=== PATIENT | female | born 1980 | race African-American/Black ===

== ENCOUNTER 2016-11-17 12:00 | Emergency (ER) | payer OTHER ==
[2016-11-17 14:30] VITALS: BP 113/77
[2016-11-17] MEDS ORDERED: Lidocaine 2% PF * 5 ML VIAL INJ ONE (14:35)
[2016-11-17] MEDS ORDERED: Tetan/Diph/Pertus SYR(Tdap)* 0.5 ML SYR(BOOSTRIX) use SYR IM ONE (14:35)
--- NOTE | 2016-11-17 15:57 | UC ---
Skin Complaint HPI - HPI Summary HPI Summary: 11/06/16 BEGAN DEVELOPING ABSCESS ON RIGHT BUTTOCKS. NO FEVER. NO DIFFICULTY WITH BOWEL MOVEMENT. SIMILAR CONCERN 14 YEARS AGO. NO KNOWN HISTORY OF MRSA. TETANUS STATUS UNKNOWN - History of Current Complaint Chief Complaint: UCSkin Time Seen by Provider: 11/17/16 14:14 Stated Complaint: SKIN COMPLAINT Hx Obtained From: Patient Hx Last Menstrual Period: 11/14/16 Onset/Duration: Gradual Onset, Lasting Weeks, Still Present Skin Exposure Onset/Duration: Weeks Ago Onset Severity: Mild Current Severity: Moderate Location: Discrete - RIGHT BUTTOCKS Character: Swelling, Redness, Raised, Painful Aggravating: Touch Alleviating: Nothing Associated Signs & Symptoms: Positive: Tenderness, Red Streaks. Negative: Nausea, Vomiting, Fever, Chills, Cough, Wheezing, Chest Pain, Hoarseness, Throat Tightening Related History: Trauma, Possible Reaction to: Environmental Exposure - Allergy/Home Medications Allergies/Adverse Reactions: Allergies Allergy/AdvReac Type Severity Reaction Status Date / Time Aspirin [ASA] Allergy Intermediate Rash Verified 11/17/16 12:06 Review of Systems Constitutional: Negative Skin: Other - ABSCESS RIGHT BUTTOCKS Eyes: Negative ENT: Negative Respiratory: Negative Cardiovascular: Negative Gastrointestinal: Negative Genitourinary: Negative Motor: Negative Neurovascular: Negative Musculoskeletal: Negative Neurological: Negative Psychological: Negative All Other Systems Reviewed And Are Negative: Yes PMH/Surg Hx/FS Hx/Imm Hx Previously Healthy: Yes - Surgical History Surgical History: Yes Surgery Procedure, Year, and Place: c sections - Family History Known Family History: Negative: Respiratory Disease, Blood Disorder - Social History Occupation: Employed Full-time Lives: With Family Alcohol Use: Occasionally Substance Use Type: None Smoking Status (MU): Current Every Day Smoker Household Exposure Type: Cigarettes Physical Exam Triage Information Reviewed: Yes Appearance: Well-Appearing, Well-Nourished, Pain Distress Vital Signs: Initial Vital Signs Temp 98.5 F 11/17/16 12:03 Pulse 83 11/17/16 12:03 Resp 16 11/17/16 12:03 BP 113/73 11/17/16 12:03 Pulse Ox 100 11/17/16 12:03 Eye Exam: Normal ENT Exam: Normal ENT: Positive: Normal ENT inspection, Hearing grossly normal, TMs normal Dental Exam: Normal Neck exam: Normal Respiratory Exam: Normal Respiratory: Positive: Chest non-tender, Lungs clear, Normal breath sounds, No respiratory distress, No accessory muscle use Cardiovascular Exam: Normal Cardiovascular: Positive: RRR, No Murmur, Pulses Normal Abdominal Exam: Normal Musculoskeletal Exam: Normal Musculoskeletal: Positive: Strength Intact, ROM Intact Neurological Exam: Normal Psychological Exam: Normal Skin: Positive: Other - 3CM X 3CM FLUCTUANT ABSCESS RIGHT BUTTOCKS - Additional Comments 3CM X 3CM FLUCTUANT ABSCESS RIGHT BUTTOCKS; INCISED AND DRAINED USING #11 BLADE , 2% LIDOCAINE, FIELD BLOCK AND 1/4" PACKING. Course/Dx - Differential Diagnoses - Skin Complaint Differential Diagnoses: Abscess, Cellulitis, Other - PILONIDAL CYST; - Diagnoses Provider Diagnoses: ABSCESS INCISION AND DRAINAGE, RIGHT BUTTOCKS Discharge - Discharge Plan Condition: Stable Disposition: HOME Prescriptions: Sulfamethox/Trimethoprim DS* [Bactrim DS 800/160 TAB*] 1 tab PO BID #20 tab Patient Education Materials: Abscess (ED) Referrals: William Thompson MD [Primary Care Provider] - Additional Instructions: PLEASE RETURN IN THREE DAYS TO HAVE ABSCESS EVALUATED Images Front/Back of Body, Lg (Riley): 1 - 3CM X 3CM FLUCTUANT ABSCESS RIGHT BUTTOCKS
== END 2016-11-17 15:56 | disposition home or self-care (01) ==
LOC: UCEAST 12:00
DX: L05.01 Pilonidal cyst with abscess (principal); L03.317 Cellulitis of buttock; Z72.0 Tobacco use
CPT/HCPCS: 10060; 46050; 87070; 87205; 87640; 87641; 90471; 90715; 99212; G0463

== ENCOUNTER 2017-01-15 08:54 | Emergency (ER) | payer OTHER ==
[2017-01-15 09:47] VITALS: BP 122/57
--- NOTE | 2017-01-15 10:07 | UC ---
Matt Sims Angela, scribed for Oanh Hair MD on 01/15/17 at 1002 . General HPI - HPI Summary HPI Summary: This pt is a 36 y/o female presenting to [facility] c/o umbilical pain and swelling for 1 week now. Pt reports she has an umbilical mass that has increased in size over the last year. Pt states it seems to get bigger and smaller. She took her navel ring out due to the increased size. Pt states sometimes had discomfort with palpation or if "bumps it." She denies any trauma to the area. Pt denies nausea, vomiting, diarrhea, fever, chills. No changes in bowel/bladder. She denies any prior history of keloids. No analgesia taken. Has not ever had it evaluated. No abd surgery, c section x 3 Pt has an allergy to aspirin, reaction is break out, facial swelling. She is a current smoker (1 pack lasts 3 days), drinks occasional alcohol but denies drugs. Pt has had 3 c-sections. Patients medication reviewed this visit. - History of Current Complaint Chief Complaint: UCGeneralIllness Stated Complaint: SOFT TISSUE Time Seen by Provider: 01/15/17 09:39 Hx Obtained From: Patient Hx Last Menstrual Period: 01/15/17 Onset/Duration: Lasting Days Timing: Constant Onset Severity: Mild Current Severity: Mild Pain Intensity: 2 - with palpation only Associated Signs & Symptoms: Positive: Other - umbilical mass. Negative: Abdominal Pain, Diarrhea, Fever, Nausea, Trauma, Vomiting - Allergy/Home Medications Allergies/Adverse Reactions: Allergies Allergy/AdvReac Type Severity Reaction Status Date / Time Aspirin [ASA] Allergy Intermediate Rash Verified 01/15/17 09:43 PMH/Surg Hx/FS Hx/Imm Hx Previously Healthy: Yes Other Endocrine History: DENIES: diabetes Other Cardiovascular History: DENIES: HTN - Surgical History Surgical History: Yes Surgery Procedure, Year, and Place: 3 c-sections, L arm surgery - Family History Known Family History: Positive: Hypertension - mom, Other - mother: pacemaker Negative: Respiratory Disease, Blood Disorder - Social History 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[employer], 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 Lives: With Family Alcohol Use: Occasionally Substance Use Type: None Smoking Status (MU): Current Every Day Smoker Amount Used/How Often: 1/3 PPD Household Exposure Type: Cigarettes Review of Systems Constitutional: Negative Skin: Other - umbilical mass Eyes: Negative ENT: Negative Respiratory: Negative Cardiovascular: Negative Gastrointestinal: Negative Genitourinary: Negative Motor: Negative Neurovascular: Negative Musculoskeletal: Negative Neurological: Negative Psychological: Negative All Other Systems Reviewed And Are Negative: Yes Physical Exam Triage Information Reviewed: Yes Appearance: Well-Appearing, No Pain Distress, Well-Nourished Vital Signs: Initial Vital Signs Temp 97 F 01/15/17 09:43 Pulse 70 01/15/17 09:43 Resp 16 01/15/17 09:43 BP 122/57 01/15/17 09:43 Pulse Ox 100 01/15/17 09:43 Vital Signs Reviewed: Yes Eye Exam: Normal ENT: Positive: Hearing grossly normal, TMs normal Dental Exam: Normal Neck exam: Normal Neck: Positive: Supple, Nontender, No Lymphadenopathy Respiratory Exam: Normal Respiratory: Positive: Chest non-tender, Lungs clear, Normal breath sounds Cardiovascular Exam: Normal Cardiovascular: Positive: RRR, No Murmur, Pulses Normal Abdomen Description: Positive: No Organomegaly, Soft, Other: - Pt with small umbilical hernia - soft easily reduced with pt supine and knees flexed. No warmth, no erythema abd soft + BS No guarding Bowel Sounds: Positive: Present Musculoskeletal Exam: Normal Neurological Exam: Normal Psychological Exam: Normal Skin: Positive: Other - see abd section Course/Dx - Course Course Of Treatment: PT presents with recurring swelling in umbilicus - pt with soft, easily reduced umbilical hernia. counseled pt regarding hernia, techniques to reduce, cause of concern. Pt given referral to general surgery to discuss treatment options. pt comfortable and in agreement with plan - Differential Dx - Multi-Symptom Provider Diagnoses: umbilical hernia Discharge - Discharge Plan Condition: Stable Disposition: HOME Patient Education Materials: Umbilical Hernia (ED) Referrals: William Thompson MD [Primary Care Provider] - Marshall Galo MD [Medical Doctor] - Additional Instructions: - Stay well hydrated - drink plenty of non-alcoholic, non-caffinated beverages - contact the surgeon referral to discuss treatment options for your hernia - if your buldge comes out - lay flat on your back and apply gentle pressure over the buldge. If you have pain, reddness, nausea or any other concerns - contact your doctor or go to the emergency department - Okay to take Tylenol every6 hours for pain The documentation as recorded by the scribe, Gutierrez,Yary accurately reflects the service I personally performed and the decisions made by me, Oanh Hair MD.
== END 2017-01-15 10:24 | disposition home or self-care (01) ==
LOC: UCEAST 08:54
DX: K42.9 Umbilical hernia without obstruction or gangrene (principal); Z88.6 Allergy status to analgesic agent
CPT/HCPCS: 99211; G0463

== ENCOUNTER 2017-01-29 06:09 | Day surgery (SDC) | payer OTHER ==
[~2017-01-29 06:09] MED LIST: Acetaminophen TAB* 325 MG PO ONE; Buffered Lidocaine 0.9% SYRIN* 5 ML/SYR SYRINGE INTRADERM ONE; Dexamethasone IV* 4 MG/ML 1 ML (4 MG) IV SLOW PU ONE; Levalbuterol 0.63MG/3ML NEB* UNIT OF USE INH ONE; Metoclopramide IV* 5 MG/ML 2 ML VIAL IV SLOW PU ONE
[2017-01-29] MEDS ORDERED: Acetaminophen TAB* 325 MG ONE (06:21)
[2017-01-29] MEDS ORDERED: Dexamethasone IV* 4 MG/ML 1 ML (4 MG) ONE (06:21)
[2017-01-29] MEDS ORDERED: Metoclopramide IV* 5 MG/ML 2 ML VIAL ONE (06:21)
[2017-01-29] MEDS ORDERED: Levalbuterol 1.25MG/0.5ML NEB ONE (06:21)
[2017-01-29] MEDS ORDERED: ceFAZolin 2 GM PREMIX (*) 50 ML IVPB ONE (06:22)
[2017-01-29] MEDS ORDERED: Buffered Lidocaine 0.9% SYRIN* 5 ML/SYR SYRINGE ONE (06:22)
[2017-01-29] MEDS ORDERED: fentaNYL* 50 MCG/ML 2 ML VIAL (100 MCG VIAL) ONE ×3 (06:59→09:55)
[2017-01-29] MEDS ORDERED: Midazolam* 1 MG/ML 2 ML VIAL (2 MG) ONE (07:00)
[2017-01-29] MEDS ORDERED: Lidocaine 1% INJ* 10 MG/ML 30 ML SDV ONE (07:13)
[2017-01-29] MEDS ORDERED: Bupivacaine 0.5% SDV PF* 30 ML VIAL ONE (07:13)
[2017-01-29] MEDS ORDERED: oxyCODONE TAB* 5 MG TAB PO PRN (08:03)
[2017-01-29] MEDS ORDERED: Scopolamine 1.5 mg* PATCH TRANSDERM PRN (08:03)
[2017-01-29] MEDS ORDERED: HYDROmorphone INJ* 1 MG/ML CARPUJECT SYRINGE IV PRN (08:03)
[2017-01-29] MEDS ORDERED: Levalbuterol 0.63MG/3ML NEB* UNIT OF USE INH PRN (08:03)
[2017-01-29] MEDS ORDERED: Ondansetron INJ* 2 MG/ML VIAL IV PRN (08:03)
[2017-01-29] MEDS ORDERED: EPHEDrine (Pressors)* 50 MG/ML VIAL ONE (08:26)
[2017-01-29] MEDS ORDERED: Sterile Water for Inj* 10 ML ONE (08:26)
[2017-01-29] MEDS ORDERED: Lidocaine 2% PF * 5 ML VIAL ONE (08:26)
[2017-01-29] MEDS ORDERED: Ondansetron INJ* 2 MG/ML VIAL ONE (08:26)
[2017-01-29] MEDS ORDERED: Propofol* 10 MG/ML 20 ML BTL IV PUSH ONE (08:26)
[2017-01-29] MEDS ORDERED: Phenylephrine IV* 40 MCG/ML 10 ML SYRINGE ONE (08:27)
[2017-01-29] MEDS ORDERED: Ketorolac INJ* 30 MG/ML 1 ML VIAL ONE (09:11)
--- NOTE | 2017-01-29 09:20 | SURGPN ---
Brief Operative Note - Surgery Procedures: Procedures OPERATIVE REPORT PRE-OP: Umbilical hernia POST-OP: Same PROCEDURE: Open repair with mesh of umbilical hernia SURGEON: MD Clover ANESTHESIA: General with local ASST:NESHA Camara=S IVF: min EBL: min SPECIMEN: none DRAIN: none WOUND CLASS: One COMPLICATIONS: none TO PACU
[2017-01-29] MEDS: fentaNYL* 50 MCG/ML 2 ML VIAL (100 MCG VIAL) IV PRN ×2 (09:57→10:20)
[2017-01-29] MEDS ORDERED: oxyCODONE TAB* 5 MG TAB ONE (10:27)
[2017-01-29 11:10] VITALS: BP 120/80
--- NOTE | 2017-01-30 12:07 | OP ---
DATE OF OPERATION: 01/29/17 - [facility] DATE OF : 78 SURGEON: Marshall Galo MD ANESTHESIOLOGIST: Oanh Castro MD ANESTHESIA: General with local. PRE-OP DIAGNOSIS: Umbilical hernia. POST-OP DIAGNOSIS: Umbilical hernia. OPERATIVE PROCEDURE: Open repair with 4.3-cm Bard Ventralex mesh placed preperitoneally. ESTIMATED BLOOD LOSS: Minimal. SPECIMENS: None. WOUND CLASSIFICATION: 1. DRAINS: None COMPLICATIONS: None. DESCRIPTION OF PROCEDURE: Written and informed consent was obtained and the abdomen was marked with indelible ink and preoperative antibiotics were administered. The patient was taken to the operating room and placed in the supine position. Sequential compression devices and a warming blanket were applied. Anesthesia was administered and the abdomen was prepped and draped in the usual sterile fashion. Time-out verification was completed. Initially, 0.25% Marcaine mixed with 1% lidocaine was infiltrated extensively around the umbilicus and a semicircular incision was made just below the umbilical fold. This was carried down to the fascia below the umbilicus and subsequently the umbilical stalk was encircled with a one-quarter inch Mann[place] drain. The umbilical skin was excised off the underlying hernia, which appeared to be preperitoneal fat, which was from the skin and reduced through a fascial defect which was about 1.5 cm in size. I did not enter the peritoneal cavity and the fascial edges appeared to be intact and healthy. I then developed the preperitoneal space with sharp and blunt dissection and with her age, activity level, as well as her higher BMI, I decided that a mesh would be indicated. Next, a 4.3-cm circular Bard mesh was then placed with the straps in the preperitoneal position. This was sutured both superiorly and inferiorly to the fascia with 2 separate horizontal mattress 0 Polysorb suture. The hoh fascia was then closed over the mesh with really no tension. Hemostasis was assured. The wound was closed in layers of 3-0 and 4-0 Polysorb suture. Steri- Strips and sterile dressings were applied. The patient tolerated the procedure well and was taken to the recovery room in stable condition. [id number]/[facility] #: [id number] MTDIsaak
[2017-02-01] MEDS ORDERED: Scopolomine PATCH Remove* 1 NOTE MISC PATCH OFF ONE (08:04)
== END 2017-01-29 11:25 | disposition home or self-care (01) ==
LOC: OR 06:09
PROVIDERS: ATTEND Surgery
DX: K42.9 Umbilical hernia without obstruction or gangrene (principal); F17.210 Nicotine dependence, cigarettes, uncomplicated; Z88.6 Allergy status to analgesic agent
CPT/HCPCS: 81025; A9270-GY; C1781; J0690; J1100; J1885; J2001; J2250; J2405; J2704; J2765; J3010

== ENCOUNTER 2017-03-12 09:12 | Emergency (ER) | payer OTHER ==
[2017-03-12 09:20] VITALS: BP 115/57
--- NOTE | 2017-03-12 10:09 | UC ---
Eye Complaint HPI - HPI Summary HPI Summary: Awoke with left eye red, crusty, draining, and irritated - History of Current Complaint Hx Obtained From: Patient Hx Last Menstrual Period: 01/15/17 ?: No Onset/Duration: Sudden Onset, Lasting Days - 1 Timing: Constant Severity Initially: Mild Severity Currently: Mild Location of Injury: Conjunctiva Aggravating Factor(s): Nothing Alleviating Factor(s): Nothing Associated Signs And Symptoms: Positive: Drainage (Purulent) <Breanne Khan - Last Filed: 03/12/17 10:13> <Oanh Hair - Last Filed: 03/12/17 14:00> - History of Current Complaint Chief Complaint: UCEye Stated Complaint: EYE COMPLAINT Time Seen by Provider: 03/12/17 10:01 - Allergies/Home Medications Allergies/Adverse Reactions: Allergies Allergy/AdvReac Type Severity Reaction Status Date / Time Aspirin [ASA] Allergy Severe Hives/Diff. Verified 01/29/17 06:30 Breathing/I tching PMH/Surg Hx/FS Hx/Imm Hx Previously Healthy: Yes - Surgical History Surgical History: Yes Surgery Procedure, Year, and Place: C- SECTION- 1994- [facility] [facility] [place] [facility] [place] Family History Known Family History: Positive: Hypertension - mom, Other - mother: pacemaker Negative: Respiratory Disease, Blood Disorder - Social History Occupation: Student Lives: With Family Alcohol Use: None Substance Use Type: None Smoking Status (MU): Current Every Day Smoker Type: Cigarettes Amount Used/How Often: 1/4 PPD FOR SINCE 17 Length of Time of Smoking/Using Tobacco: 19 YRS Have You Smoked in the Last Year: Yes Household Exposure Type: Cigarettes <Breanne Khan - Last Filed: 03/12/17 10:13> Review of Systems Constitutional: Negative Skin: Negative Eyes: Negative, Drainage, Eye Redness ENT: Negative Respiratory: Negative Cardiovascular: Negative Gastrointestinal: Negative Genitourinary: Negative Motor: Negative Neurovascular: Negative Musculoskeletal: Negative Neurological: Negative Psychological: Negative Is Patient Immunocompromised?: No All Other Systems Reviewed And Are Negative: Yes <Breanne Khan - Last Filed: 03/12/17 10:13> Physical Exam Triage Information Reviewed: Yes Appearance: Well-Appearing, No Pain Distress, Well-Nourished Vital Signs: Initial Vital Signs Temp 99.6 F 03/12/17 09:17 Pulse 85 03/12/17 09:17 Resp 18 03/12/17 09:17 BP 115/57 03/12/17 09:17 Pulse Ox 100 03/12/17 09:17 Vital Signs Reviewed: No Eye Exam: Normal Eyes: Positive: Conjunctiva Inflamed, Discharge, Other: - perrla, eomi ENT Exam: Normal ENT: Positive: Normal ENT inspection, Hearing grossly normal, Pharynx normal. Negative: Nasal congestion, Nasal drainage, Trismus, Muffled voice, Hoarse voice , Sinus tenderness Dental Exam: Normal Neck exam: Normal Neck: Positive: Supple, Nontender Respiratory Exam: Normal Respiratory: Positive: Chest non-tender, No respiratory distress, No accessory muscle use Cardiovascular Exam: Normal Cardiovascular: Positive: RRR, Pulses Normal, Brisk Capillary Refill Musculoskeletal Exam: Normal Musculoskeletal: Positive: Strength Intact, ROM Intact, No Edema Neurological Exam: Normal Neurological: Positive: Alert, Muscle Tone Normal Psychological Exam: Normal Skin Exam: Normal <Breanne Khan - Last Filed: 03/12/17 10:13> Vital Signs: Initial Vital Signs Temp 99.6 F 03/12/17 09:17 Pulse 85 03/12/17 09:17 Resp 18 03/12/17 09:17 BP 115/57 03/12/17 09:17 Pulse Ox 100 03/12/17 09:17 <Oanh Hair - Last Filed: 03/12/17 14:00> Eye Complaint Course/Dx - Course Course Of Treatment: polytrim drops, follow with pcp prn - Differential Dx/Diagnosis Provider Diagnoses: OS conjuctivitis <Breanne Khan - Last Filed: 03/12/17 10:13> Discharge <Breanne Khan - Last Filed: 03/12/17 10:13> <Oanh Hair - Last Filed: 03/12/17 14:00> - Discharge Plan Condition: Stable Disposition: HOME Prescriptions: Polymyx/Trimethoprim OPTH* [Polytrim OPHTH*] 1 drop LEFT EYE QID #1 btl Patient Education Materials: How to Use Eye Drops (ED), Conjunctivitis (ED) Referrals: William Thompson MD [Primary Care Provider] - If Needed Attestation Statement User Type: Provider - I was available for consult. This patient was seen by the [facility]. The patient was not presented to, seen by, or examined by me. -Justin <Oanh Hair - Last Filed: 03/12/17 14:00>
== END 2017-03-12 10:15 | disposition home or self-care (01) ==
LOC: UCEAST 09:12
DX: H10.9 Unspecified conjunctivitis (principal); Z88.6 Allergy status to analgesic agent; F17.210 Nicotine dependence, cigarettes, uncomplicated
CPT/HCPCS: 99212; G0463

== ENCOUNTER 2017-03-21 21:06 | Emergency (ER) | payer OTHER ==
[2017-03-21 21:14] VITALS: BP 122/71
--- NOTE | 2017-03-21 21:17 | UC ---
Eye Complaint HPI - HPI Summary HPI Summary: Pt presents with left eye redness and drainage. She tells me that about 3 weeks ago she developed left eye redness, itchiness, and discharge. She was seen at the and rx'd Trimethoprim/polymyxin which she used for 6 days - her symptoms improved, but were not completely gone and she had no more drops lets. She woke up this morning with her symptoms returned - redness, itchiness, and discharge from left eye. Denies fever, chills, pain, recent illness, vision changes, or FB sensation. She does not wear contacts. - History of Current Complaint Chief Complaint: UCEye Stated Complaint: EYE COMPLAINT Hx Obtained From: Patient Hx Last Menstrual Period: 1 WEEK AGO Onset/Duration: Gradual Onset Timing: Constant Severity Initially: Moderate Severity Currently: Moderate Pain Intensity: 8 Pain Scale Used: 0-10 Numeric - Allergies/Home Medications Allergies/Adverse Reactions: Allergies Allergy/AdvReac Type Severity Reaction Status Date / Time Aspirin [ASA] Allergy Severe Hives/Diff. Verified 03/21/17 21:14 Breathing/I tching PMH/Surg Hx/FS Hx/Imm Hx Previously Healthy: Yes - Surgical History Surgical History: Yes Surgery Procedure, Year, and [facility] [place] [facility] [place]. C- SECTION- 2002, 2006[place] [facility] [place]. . [facility]ERNIA REPAIR 01/28/17 - Family History Known Family History: Positive: Hypertension - mom, Other - mother: pacemaker Negative: Respiratory Disease, Blood Disorder - Social History Alcohol Use: None Substance Use Type: None Smoking Status (MU): Current Every Day Smoker Type: Cigarettes Amount Used/How Often: 1/3 PPD Length of Time of Smoking/Using Tobacco: 19 YRS Have You Smoked in the Last Year: Yes Household Exposure Type: Cigarettes Review of Systems Constitutional: Negative Skin: Negative Eyes: Drainage, Eye Redness ENT: Negative Respiratory: Negative Cardiovascular: Negative All Other Systems Reviewed And Are Negative: Yes Physical Exam Triage Information Reviewed: Yes Appearance: Well-Appearing, Well-Nourished Vital Signs: Initial Vital Signs Temp 98.2 F 03/21/17 21:10 Pulse 73 03/21/17 21:10 Resp 16 03/21/17 21:10 BP 122/71 03/21/17 21:10 Vital Signs Reviewed: Yes Eyes: Positive: Conjunctiva Inflamed - Left eye, Discharge - Left eye. Watery and yellow in color. PERRLA. EOMI., Other: - OD/OS/OU: 20/25 ENT: Positive: Hearing grossly normal, Pharynx normal, TMs normal. Negative: Pharyngeal erythema, Nasal congestion, Nasal drainage, TM bulging, TM dull, TM red, Tonsillar swelling, Tonsillar exudate, Sinus tenderness Neck: Positive: Supple, Nontender, No Lymphadenopathy Eye Complaint Course/Dx - Course Course Of Treatment: Failed polymyxin b with trimethoprim - will try Cipro Opth - Differential Dx/Diagnosis Differential Diagnosis/HQI/PQRI: Conjunctivitis Provider Diagnoses: Conjunctivitis left eye Discharge - Discharge Plan Condition: Stable Disposition: HOME Prescriptions: Ciprofloxacin 0.3% OPTH.ALYSSA* [Cipro 0.3% Opth*] 1 drop LEFT EYE TID #1 btl Patient Education Materials: Conjunctivitis (ED) Referrals: William Thompson MD [Primary Care Provider] - Additional Instructions: If you develop a fever, SOB, chest pain, decreased vision, headache, pain in the eye, new or worsening symptoms - please call your PCP or go to the ED.
[2017-03-21] MEDS ORDERED: Ciprofloxacin 0.3% OPTH.SOL* 2.5 ML BTL LEFT EYE ONE (21:22)
[2017-03-21] MEDS ORDERED: Ciprofloxacin 0.3% OPTH.SOL* 2.5 ML BTL ONE (21:23)
== END 2017-03-21 21:39 | disposition home or self-care (01) ==
LOC: UCEAST 21:06
DX: H10.9 Unspecified conjunctivitis (principal); Z72.0 Tobacco use
CPT/HCPCS: 99212; A9270-GY; G0463

== ENCOUNTER 2018-12-30 04:30 | Emergency (ER) | payer MEDICAID, OTHER ==
--- NOTE | 2018-12-30 04:52 | ED ---
Throat Pain/Nasal Congestion - HPI Summary HPI Summary: This patient is a 38 year old female presenting to [facility] with a chief complaint of sore throat since 2 days ago. Pt reports her throat hurts, every time she coughs or turns her head it feels like someone is stabbing her in her right chest, and her R eye has been itching and red. She denies fever. She states it is difficult to move up stairs. She states she has had decreased appetite. She states nobody else at home has been sick. - History of Current Complaint Chief Complaint: EDThroatPain Time Seen by Provider: 12/30/18 04:43 Hx Obtained From: Patient Onset/Duration: Lasting Days - Allergies/Home Medications Allergies/Adverse Reactions: Allergies Allergy/AdvReac Type Severity Reaction Status Date / Time MS Aspirin [ASA] Allergy Severe Hives/Diff. Verified 12/30/18 04:46 Breathing/I tching PMH/Surg Hx/FS Hx/Imm Hx Endocrine/Hematology History: Denies: Hx Diabetes Cardiovascular History: Denies: Hx Hypertension Respiratory History: Denies: Hx Chronic Obstructive Pulmonary Disease (COPD) GI History: Reports: Other GI Disorders - HX OF UMBILICAL HERNIA FOR ABOUT 1 YR Musculoskeletal History: Reports: Other Musculoskeletal History - 1996 LEFT FOREARM LACERATION Sensory History: Reports: Hx Contacts or Glasses - GLASSES Denies: Hx Hearing Aid Opthamlomology History: Reports: Hx Contacts or Glasses - GLASSES - Surgical History Surgery Procedure, Year, and Place: C- SE[facility]- 1994- [facility]. [place] [facility] [place] [facility] [place]ERNIA [place]PA[place] 01/28/17 Hx Anesthesia Reactions: No Infectious Disease History: No Infectious Disease History: Denies: History Other Infectious Disease, Traveled Outside the [place] in Last 30 Days - Family History Known Family History: Positive: Hypertension - mom, Other - mother: pacemaker Negative: Respiratory Disease, Blood Disorder - Social History Alcohol Use: None Substance Use Type: Reports: None Smoking Status (MU): Current Every Day Smoker Type: Cigarettes Amount Used/How Often: 1/3 PPD Length of Time of Smoking/Using Tobacco: 19 YRS Have You Smoked in the Last Year: Yes Review of Systems Positive: Other - Decreased appetite. Negative: Fever Positive: Other - Eye irritation Positive: Sore Throat Positive: Chest Pain Positive: Cough Negative: Abdominal Pain, Vomiting Negative: Headache, Weakness Negative: Anxious All Other Systems Reviewed And Are Negative: Yes Physical Exam - Summary Physical Exam Summary: Appearance: Well-appearing, Well-nourished, lying in bed comfortably Skin: Warm, dry, no obvious rash Eyes: sclera anicteric, no conjunctival pallor ENT: mucous membranes moist, pharynx appears normal Neck: Supple, nontender Respiratory: Clear to auscultation, no signs of respiratory distress Cardiovascular: Normal S1, S2. No murmurs. Normal distal pulses in tibial and radial bilaterally. Abdomen: Soft, nontender, normal active bowel sounds present Musculoskeletal: Normal, Strength/ROM Intact Neurological: A&Ox3, awake and alert, mentation is normal, speech is fluent and appropriate Psychiatric: affect is normal, does not appear anxious or depressed Triage Information Reviewed: Yes Vital Signs On Initial Exam: Initial Vitals Temp Pulse Resp BP Pulse Ox 98.5 F 73 15 149/83 100 12/30/18 04:31 12/30/18 04:31 12/30/18 04:31 12/30/18 04:31 12/30/18 04:31 Vital Signs Reviewed: Yes Diagnostics - Vital Signs Vital Signs Temp Pulse Resp BP Pulse Ox 12/30/18 04:31 98.5 F 73 15 149/83 100 - Laboratory Result Diagrams: 12/30/18 04:59 12/30/18 04:59 Lab Statement: Any lab studies that have been ordered have been reviewed, and results considered in the medical decision making process. - Radiology CXR Radiology Interpretation Completed By: ED Physician Summary of Radiographic Findings: No acute process. Pending official radiologist report. EENT Course/Dx - Course Course Of Treatment: This patient is a 38 year old female presenting to [facility] with a chief complaint of general illness since 2 days ago. Labs and CXR were unremarkable for any cardiopulmonary problems. A plan for discharge was discussed with the patient and she was agreeable with this plan. - Diagnoses Provider Diagnoses: Acute bronchitis Discharge ED - Sign-Out/Discharge Documenting (check all that apply): Patient Departure Patient Received Moderate/Deep Sedation with Procedure: No - Discharge Plan Condition: Good Disposition: HOME Prescriptions: Azithromycin TAB* [Zithromax TAB (Z-LACHELLE) 250 mg #6 tabs] 2 tab PO .TODAY, THEN 1 DAILY #1 lachelle Azithromycin TAB* [Zithromax TAB (Z-LACHELLE) 250 mg #6 tabs] 2 tab PO .TODAY, THEN 1 DAILY #1 lachelle Patient Education Materials: Acute Bronchitis (ED) Referrals: William Thompson MD [Primary Care Provider] - 3 Days (if not starting to improve) - Billing Disposition and Condition Condition: GOOD Disposition: Home - Attestation Statements Document Initiated by Aloibe: Yes Documenting Scribe: Nick Carrizales Provider For Whom Deandre is Documenting (Include Credential): Jason Etienne MD Scribe Attestation: Nick Sims, scribed for Jason Etienne MD on 12/30/18 at 2334. Scribe Documentation Reviewed: Yes Provider Attestation: The documentation as recorded by the Nick rosario accurately reflects the service I personally performed and the decisions made by me, Jason Etienne MD Status of Scribe Document: Viewed
[2018-12-30 05:07] LABS: ABS Basophils 0.1 10^3/ul (0-0.2); ABS Eosinophils 0.2 10^3/ul (0-0.6); ABS Lymphocytes 2.5 10^3/ul (1.0-4.8); ABS Monocytes 0.8 10^3/ul (0-0.8); ABS Neutrophils 6.4 10^3/ul (1.5-7.7); Hematocrit 36 % (35-47); Hemoglobin 12.1 g/dL (12.0-16.0); Lymphocyte % 25.5 %; Mean Corpuscular HGB Conc 33 g/dL (31-36); Mean Corpuscular Hemoglobin 30 pg (27-31); Mean Corpuscular Volume 89 fL (80-97); Mean Platelet Volume 6.7 fL (7.4-10.4); Platelet Count 246 10^3/uL (150-450); Red Blood Count 4.11 10^6 /uL (3.70-4.87); Red Cell Distribution Width 14 % (10-15); White Blood Count 9.9 10^3/uL (3.5-10.8)
[2018-12-30 05:24] LABS: Albumin 4.1 g/dL (3.2-5.2); Albumin/Globulin Ratio 1.4 (1-3); BUN/Creatinine Ratio 14.8 (8-20); Calcium 9.2 mg/dL (8.6-10.3); EGFR African American 86.6 (>60); EGFR Non-African American 71.5 (>60); Total Bilirubin 0.3 mg/dL (0.2-1.0); Total Protein 7.1 g/dL (6.4-8.9)
[2018-12-30 06:33] VITALS: BP 144/82
== END 2018-12-30 06:32 | disposition home or self-care (01) ==
LOC: ED 04:30
DX: J20.9 Acute bronchitis, unspecified (principal); F17.210 Nicotine dependence, cigarettes, uncomplicated; Z88.6 Allergy status to analgesic agent
CPT/HCPCS: 36415; 71046; 80053; 85025; 99282

== ENCOUNTER 2019-02-12 12:49 | Emergency (ER) | payer MEDICAID ==
[2019-02-12 13:19] VITALS: BP 114/70
--- NOTE | 2019-02-12 14:38 | UC ---
Eye Complaint HPI - HPI Summary HPI Summary: 38-year-old female who has had some left eye irritation with itching and wateriness however in the morning it's red with purulent drainage in her left eye is stuck shut. She denies any recent cold symptoms. - History of Current Complaint Chief Complaint: UCEye Stated Complaint: EYE IRRITATION Time Seen by Provider: 02/12/19 14:29 Hx Obtained From: Patient Hx Last Menstrual Period: 01/14/19 ?: No Onset/Duration: Gradual Onset Timing: Constant Severity Initially: Mild Severity Currently: Mild Pain Intensity: 0 Location of Injury: Other - No injury Aggravating Factor(s): Nothing Alleviating Factor(s): Nothing Associated Signs And Symptoms: Positive: Drainage (Purulent) - Allergies/Home Medications Allergies/Adverse Reactions: Allergies Allergy/AdvReac Type Severity Reaction Status Date / Time aspirin Allergy Hives/Diff. Verified 02/12/19 13:13 Breathing/I tching PMH/Surg Hx/FS Hx/Imm Hx Previously Healthy: Yes - Surgical History Surgical History: Yes Surgery Procedure, Year, and [facility]: [facility] [facility] [place] [facility] [place]/28/17 - Family History Known Family History: Positive: Hypertension - mom, Other - mother: pacemaker Negative: Respiratory Disease, Blood Disorder - Social History Alcohol Use: None Substance Use Type: None Smoking Status (MU): Current Every Day Smoker Type: Cigarettes Amount Used/How Often: 1/3 PPD Length of Time of Smoking/Using Tobacco: 19 YRS Have You Smoked in the Last Year: Yes Household Exposure Type: Cigarettes Review of Systems All Other Systems Reviewed And Are Negative: Yes Eyes: Positive: Drainage - Patient states she's had some purulent drainage in the morning and her left eye has been crusted shut., Eye Redness ENT: Positive: Nasal Discharge - Patient denies any cold symptoms however she states that her mucous membranes and nose have been very dry and when she blows her nose she has some mild bleeding. Is Patient Immunocompromised?: No Physical Exam Triage Information Reviewed: Yes Appearance: Well-Appearing, No Pain Distress, Well-Nourished Vital Signs: Initial Vital Signs Temp 98.8 F 02/12/19 13:14 Pulse 60 02/12/19 13:14 Resp 16 10/16/19 13:14 BP 114/70 02/12/19 13:14 Pulse Ox 100 02/12/19 13:14 Vital Signs Reviewed: Yes Eyes: Positive: Conjunctiva Inflamed, Discharge - Watery drainage at this point in time, no purulence. ENT: Positive: Pharynx normal, Nasal drainage - No bleeding noted., TMs normal, Uvula midline Neck: Positive: Supple, Nontender, No Lymphadenopathy Respiratory: Positive: Lungs clear, Normal breath sounds, No respiratory distress, No accessory muscle use Cardiovascular: Positive: RRR, No Murmur, Pulses Normal, Brisk Capillary Refill Musculoskeletal Exam: Normal Neurological Exam: Normal Psychological Exam: Normal Skin Exam: Normal Eye Complaint Course/Dx - Course Course Of Treatment: Patient is comfortable here. Because the patient has had some left eye redness worse purulent drainage in the morning and crustiness I am going to treat her with antibiotic eyedrops. She is to follow up at [facility] if no improvement in 3 or 4 days. - Differential Dx/Diagnosis Provider Diagnosis: Left conjunctivitis Discharge ED - Sign-Out/Discharge Documenting (check all that apply): Patient Departure All imaging exams completed and their final reports reviewed: No Studies - Discharge Plan Condition: Good Disposition: HOME Prescriptions: Tobramycin 0.3% OPHTH.ALYSSA* 1 drop LEFT EYE Q4H 7 Days #1 btl Patient Education Materials: Conjunctivitis (ED) Referrals: No Primary Care Phys,NOPCP [Primary Care Provider] - [facility] [Outside] Additional Instructions: Good handwashing. Put some antibiotic ointment inside her nostrils twice a day. Follow-up with [facility] no improvement in 3 or 4 days. - Billing Disposition and Condition Condition: GOOD Disposition: Home
== END 2019-02-12 14:53 | disposition home or self-care (01) ==
LOC: UCEAST 12:49
DX: H10.9 Unspecified conjunctivitis (principal); R09.89 Other specified symptoms and signs involving the circulatory and respiratory systems; Z88.8 Allergy status to other drugs, medicaments and biological substances
CPT/HCPCS: 99212; G0463

== ENCOUNTER 2019-03-01 17:30 | Emergency (ER) | payer MEDICAID ==
[2019-03-01 17:51] VITALS: BP 115/70
--- NOTE | 2019-03-01 18:39 | UC ---
Hand/Wrist HPI - HPI Summary HPI Summary: 38 yo female with right wrist pain for 1-2 weeks no injury she is right handed she goes to school - History Of Current Complaint Chief Complaint: UCUpperExtremity Stated Complaint: R WRIST INJURY Time Seen by Provider: 03/01/19 18:32 Hx Obtained From: Patient Hx Last Menstrual Period: 02/14/19 Onset/Duration: Gradual Onset, Lasting Days Severity Initially: Mild Severity Currently: Moderate Pain Intensity: 6 Pain Scale Used: 0-10 Numeric Character Of Pain: Dull, Aching Aggravating Factor(s): Movement Alleviating Factor(s): Nothing Associated Signs And Symptoms: Positive: Negative Related History: Dominant Hand Right Hands: 1 - pain and tenderness here - Allergies/Home Medications Allergies/Adverse Reactions: Allergies Allergy/AdvReac Type Severity Reaction Status Date / Time aspirin Allergy Hives/Diff. Verified 03/01/19 17:51 Breathing/I tching Home Medications: Home Medications NK [No Home Medications Reported] 03/01/19 [History Confirmed 03/01/19] PMH/Surg Hx/FS Hx/Imm Hx Previously Healthy: Yes - Surgical History Surgical History: Yes Surgery Procedure, Year, and Place: C- SECTION- 1994- [facility]. REPAIR LEFT FOREARM LACERATION- 1996- [facility] [place] C- SECTION- 2002, 2006- [facility] [place] . HERNIA REPAIR 01/28/17 - Family History Known Family History: Positive: Hypertension - mom, Other - mother: pacemaker Negative: Respiratory Disease, Blood Disorder - Social History Alcohol Use: None Substance Use Type: None Smoking Status (MU): Current Every Day Smoker Type: Cigarettes Amount Used/How Often: 1/3 PPD Length of Time of Smoking/Using Tobacco: 19 YRS Have You Smoked in the Last Year: Yes Household Exposure Type: Cigarettes Review of Systems All Other Systems Reviewed And Are Negative: Yes Constitutional: Positive: Negative Skin: Positive: Negative Eyes: Positive: Negative ENT: Positive: Negative Respiratory: Positive: Negative Cardiovascular: Positive: Negative Gastrointestinal: Positive: Negative Genitourinary: Positive: Negative Motor: Positive: Negative Neurovascular: Positive: Negative Musculoskeletal: Positive: Arthralgia - right wrist Neurological: Positive: Negative Psychological: Positive: Negative Physical Exam Triage Information Reviewed: Yes Appearance: Well-Appearing, No Pain Distress, Well-Nourished Vital Signs: Initial Vital Signs Temp 99.1 F 03/01/19 17:45 Pulse 62 03/01/19 17:45 Resp 16 03/01/19 17:45 BP 115/70 03/01/19 17:45 Pulse Ox 98 03/01/19 17:45 Vital Signs Reviewed: Yes Eyes: Positive: Conjunctiva Clear ENT: Positive: Hearing grossly normal, Uvula midline. Negative: Nasal congestion, Nasal drainage, Trismus, Muffled voice, Hoarse voice Dental Exam: Normal Neck: Positive: Supple, Nontender, No Lymphadenopathy Respiratory: Positive: Lungs clear, Normal breath sounds, No respiratory distress, No accessory muscle use Musculoskeletal: Positive: ROM Intact, Other: - tender right wrist near ulnar styloid Neurological: Positive: Alert Psychological Exam: Normal Skin Exam: Normal Diagnostics - Radiology No standard instances Radiology Interpretation Completed By: ED Physician Summary of Radiographic Findings: no acute findings- unsure of significance of calcifications near ulnar styloid Hand/Wrist Course/Dx - Differential Dx/Diagnosis Provider Diagnosis: Left wrist pain Discharge ED - Sign-Out/Discharge Documenting (check all that apply): Patient Departure All imaging exams completed and their final reports reviewed: No - Discharge Plan Condition: Stable Disposition: HOME Referrals: Wade Alcocer MD [Medical Doctor] - 1 Week (recheck in 1-2 weeks if not better ) Additional Instructions: wear splint offical xr reading pending You may have an injury to you TFCC which does not show up on XRs advil or aleve get rechecked in 1-2 weeks if not better - Billing Disposition and Condition Condition: STABLE Disposition: Home
--- NOTE | 2019-03-02 07:21 | UC ---
- Progress Note Progress Note: wet read correct Course/Dx - Diagnoses Provider Diagnoses: Left wrist pain Discharge ED - Sign-Out/Discharge Documenting (check all that apply): Post-Discharge Follow Up All imaging exams completed and their final reports reviewed: Yes - Discharge Plan Condition: Stable Disposition: HOME Referrals: Wade Alcocer MD [Medical Doctor] - 1 Week (recheck in 1-2 weeks if not better ) Additional Instructions: wear splint offical xr reading pending You may have an injury to you TFCC which does not show up on XRs advil or aleve get rechecked in 1-2 weeks if not better - Billing Disposition and Condition Condition: STABLE Disposition: Home
== END 2019-03-01 19:23 | disposition home or self-care (01) ==
LOC: UCEAST 17:30
DX: M25.531 Pain in right wrist (principal); F17.210 Nicotine dependence, cigarettes, uncomplicated; Z88.6 Allergy status to analgesic agent
CPT/HCPCS: 99212; G0463

== ENCOUNTER 2019-03-02 21:51 | Emergency (ER) | payer MEDICAID, OTHER ==
[2019-03-02] MEDS ORDERED: Cyclobenzaprine TAB* 10 MG PO ONE (22:14)
[2019-03-02] MEDS ORDERED: oxyCODONE/Acetamin 5/325 MG* TAB PO ONE (22:14)
--- NOTE | 2019-03-02 22:51 | ED ---
Back Pain - HPI Summary HPI Summary: 38 year old female presents with back pain for the past 2 days. She states it hurts in her lower back. States that every time she sits down she cannot get up. she denies any urinary symptoms. No loss bowel or bladder. No saddle anesthesia. No fevers. No pain into her legs. No numbness or tingling. Pain is in her low back. Denies any history of back pain. No injury. Is not diabetic. - History of Current Complaint Chief Complaint: EDBackInjuryPain Stated Complaint: BACK PAIN PER PT Time Seen by Provider: 03/02/19 22:05 Hx Last Menstrual Period: 02/14/19 Pain Intensity: 9 - Allergies/Home Medications Allergies/Adverse Reactions: Allergies Allergy/AdvReac Type Severity Reaction Status Date / Time aspirin Allergy Hives/Diff. Verified 03/02/19 21:53 Breathing/I tching PMH/Surg Hx/FS Hx/Imm Hx Endocrine/Hematology History: Denies: Hx Diabetes Cardiovascular History: Denies: Hx Hypertension Respiratory History: Denies: Hx Asthma, Hx Chronic Obstructive Pulmonary Disease (COPD) GI History: Reports: Other GI Disorders - HX OF UMBILICAL HERNIA FOR ABOUT 1 YR Musculoskeletal History: Reports: Other Musculoskeletal History - 1996 LEFT FOREARM LACERATION Sensory History: Reports: Hx Contacts or Glasses - GLASSES Denies: Hx Hearing Aid Opthamlomology History: Reports: Hx Contacts or Glasses - GLASSES - Surgical History Surgery Procedure, Year, and Place: C- SECTION- [facility] [place] [facility] [place] [facility] [place]/28[place]17 Hx Anesthesia Reactions: No Infectious Disease History: No Infectious Disease History: Denies: History Other Infectious Disease, Traveled Outside the [place] in Last 30 Days - Family History Known Family History: Positive: Hypertension - mom, Other - mother: pacemaker Negative: Respiratory Disease, Blood Disorder - Social History Alcohol Use: None Substance Use Type: Reports: None Smoking Status (MU): Current Every Day Smoker Type: Cigarettes Amount Used/How Often: 1/3 PPD Length of Time of Smoking/Using Tobacco: 19 YRS Have You Smoked in the Last Year: Yes Review of Systems Negative: Fever Negative: Chest Pain Negative: Shortness Of Breath Positive: Myalgia - back pain All Other Systems Reviewed And Are Negative: Yes Physical Exam Triage Information Reviewed: Yes Vital Signs On Initial Exam: Initial Vitals Temp Pulse Resp BP Pulse Ox 98.7 F 96 16 120/70 100 03/02/19 21:52 03/02/19 21:52 03/02/19 21:52 03/02/19 21:52 03/02/19 21:52 Vital Signs Reviewed: Yes Appearance: Positive: Well-Appearing Skin: Positive: Warm, Dry Head/Face: Positive: Normal Head/Face Inspection Eyes: Positive: Normal, Conjunctiva Clear ENT: Positive: Pharynx normal Respiratory/Lung Sounds: Positive: Clear to Auscultation, Breath Sounds Present Cardiovascular: Positive: Normal, RRR Musculoskeletal: Positive: Limited @ - back with pain, Other - tenderness lower back, good pulses, sensation grossly intact Neurological: Positive: Normal, Reflexes Intact - patella, Normal Gait, Babinski Bilateral - normal Psychiatric: Positive: Normal Procedures - Sedation Patient Received Moderate/Deep Sedation with Procedure: No Diagnostics - Vital Signs Vital Signs Temp Pulse Resp BP Pulse Ox 03/02/19 22:41 16 03/02/19 21:52 98.7 F 96 16 120/70 100 - Laboratory Lab Statement: Any lab studies that have been ordered have been reviewed, and results considered in the medical decision making process. - Radiology back Radiology Interpretation Completed By: ED Physician Summary of Radiographic Findings: no fracture Re-Evaluation - Re-Evaluation First Eval Re-Evaluation Time: 23:04 Change: Improved Comment: feeling better, still unable to sit down Second Eval Re-Evaluation Time: 23:43 Comment: able to sit down but unable to get up Third Eval Re-Evaluation Time: 00:07 Change: Improved Comment: feeling better Back Pain Course/Dx - Course Course Of Treatment: 38 year old female presents with back pain for the past 2 days. She states it hurts in her lower back. States that every time she sits down she cannot get up. she denies any urine symptoms. No loss bowel or bladder. No saddle anesthesia. No fevers. No pain into her legs. No numbness or tingling. Pain is in her low back. Denies any history of back pain. No injury. Is not diabetic. On exam has tenderness lower back. neurovascular intact. X-ray shows no fracture. Gave Lidoderm Percocet and Flexeril with minimial improvement. will give valium and decadron and feeling better. will prescribed medrol, flexeril, and lidoderm. told to est care with primary. patient understand and agrees with plan. - Diagnoses Differential Diagnosis/HQI/PQRI: Positive: Herniated Disc, Strain, Sprain Provider Diagnoses: Back pain Discharge ED - Sign-Out/Discharge Documenting (check all that apply): Patient Departure - Discharge Plan Condition: Good Disposition: HOME Prescriptions: Cyclobenzaprine TAB* [Flexeril 10 MG TAB*] 10 mg PO TID PRN #21 tab PRN Reason: Pain - Moderate Lidocaine PATCH 5%* [Lidoderm 5% Patch*] 1 patch TRANSDERM DAILY #5 patch methylPREDNISolone [Medrol Dosepak 4 MG*] 4 mg PO .SEE LACHELLE INSTRUCTION #1 packet Patient Education Materials: Back Pain (ED) [place] [facility] [place] [facility] [place]] Additional Instructions: Follow directions on package for Medrol pack Take muscle relaxers three times a day Apply lidocaine patches to area for up to 12 hours in one 24 hour period Use ibuprofen or Tylenol for pain every 6 hours ice/heat area, move as much as possible establish care with primary to follow up Return to ED if develop any new or worsening symptoms - Billing Disposition and Condition Condition: GOOD Disposition: Home - Attestation Statements Provider Attestation: I was available for consult. This patient was seen by the [facility]. The patient was not presented to, seen by, or examined by me. Sreekanth Mcclelland MD
[2019-03-02] MEDS ORDERED: Lidocaine PATCH 5%* 1 PATCH TRANSDERM ONE (22:53)
[2019-03-02] MEDS ORDERED: Diazepam TAB(*) 5 MG PO ONE (23:42)
[2019-03-02] MEDS ORDERED: Dexamethasone IV* 4 MG/ML 1 ML (4 MG) IM ONE (23:42)
[2019-03-03 00:21] VITALS: BP 102/55
[2019-03-03] MEDS ORDERED: Lidocaine Patch REMOVE* 1 NOTE MISC PATCH OFF ONE (11:00)
--- NOTE | 2019-03-03 12:14 | ED ---
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 Final read showing spondylosis. No change in treatment needed at this time. Provider Diagnoses: Back pain
== END 2019-03-03 00:20 | disposition home or self-care (01) ==
LOC: ED 21:51
DX: M54.9 Dorsalgia, unspecified (principal); F17.210 Nicotine dependence, cigarettes, uncomplicated; Z88.6 Allergy status to analgesic agent
CPT/HCPCS: 72110; 96372; 99282; A9270-GY; J1100

== ENCOUNTER 2019-06-20 21:17 | Emergency (ER) | payer OTHER ==
--- NOTE | 2019-06-20 21:59 | UC ---
Knee Pain HPI - History of Current Complaint Stated Complaint: KNEE PAIN Hx Obtained From: Patient Hx Last Menstrual Period: 02/14/19 - Allergies/Home Medications Allergies/Adverse Reactions: Allergies Allergy/AdvReac Type Severity Reaction Status Date / Time aspirin Allergy Hives/Diff. Verified 03/02/19 21:53 Breathing/I tching Home Medications: Home Medications Cyclobenzaprine TAB* [Flexeril 10 MG TAB*] 10 mg PO TID PRN #21 tab 03/03/19 [Rx ] Lidocaine PATCH 5%* [Lidoderm 5% Patch*] 1 patch TRANSDERM DAILY #5 patch [Rx] methylPREDNISolone [Medrol Dosepak 4 MG*] 4 mg PO .SEE LACHELLE INSTRUCTION #1 packet 03/03/19 [Rx] PMH/Surg Hx/FS Hx/Imm Hx - Surgical History Surgical History: Yes Surgery Procedure, Year, and Place: C- SECTION- 1994- [facility]. REPAIR LEFT FOREARM LACERATION- [place]- [facility] [place]. C- SECTION- 2002, 2006[place] [facility] [place]. . HERNIA REPAIR 01/28/17 - Family History Known Family History: Positive: Hypertension - mom, Other - mother: pacemaker Negative: Respiratory Disease, Blood Disorder - Social History Alcohol Use: None Substance Use Type: None Smoking Status (MU): Current Every Day Smoker Type: Cigarettes Amount Used/How Often: 1/3 PPD Length of Time of Smoking/Using Tobacco: 19 YRS Have You Smoked in the Last Year: Yes Household Exposure Type: Cigarettes Physical Exam - Summary Physical Exam Summary: Vital Signs Reviewed: Yes A+Ox3, no distress Eyes: Conjunctiva Clear ENT: Hearing grossly normal neck: supple Respiratory: Positive: No respiratory distress, No accessory muscle use Cardiovascular: skin color reflect adequate perfusion Musculoskeletal Exam: DIMAS x 4 without difficulty Neurological: Positive: Alert, ambulatory without difficulty Psychological: Positive: Normal Response To Family Skin: Positive: no rash, no ecchymosis Discharge ED - Sign-Out/Discharge Documenting (check all that apply): Patient Departure All imaging exams completed and their final reports reviewed: No - Discharge Plan Condition: Stable Disposition: HOME Patient Education Materials: Knee Pain (ED) Forms: *Work Release Referrals: [facility] [place] [facility] [Outside] - If Needed Additional Instructions: As discussed, your radiograph was reviewed by the provider that treated you tonight. It will be read by a radiologist tomorrow morning. If there is a finding other than that discussed with you today, you will receive a call from a care provider. Rest, ice, elevate, and use the david wrap to help alleviate pain symptoms. Take ibuprofen as directed for pain relief. Refrain from strenuous physical activity until pain has resolved. Follow up with the sports medicine referral listed below if symptoms perist. - Billing Disposition and Condition Condition: STABLE Disposition: Home
[2019-06-20 22:17] VITALS: BP 112/75
--- NOTE | 2019-06-21 07:57 | UC ---
- Progress Note Progress Note: Xr wet read correct Course/Dx - Diagnoses Provider Diagnoses: Knee pain Discharge ED - Sign-Out/Discharge Documenting (check all that apply): Post-Discharge Follow Up All imaging exams completed and their final reports reviewed: Yes - Discharge Plan Condition: Stable Disposition: HOME Patient Education Materials: Knee Pain (ED) Forms: *Work Release Referrals: [facility] [Outside] - If Needed Additional Instructions: As discussed, your radiograph was reviewed by the provider that treated you tonight. It will be read by a radiologist tomorrow morning. If there is a finding other than that discussed with you today, you will receive a call from a care provider. Rest, ice, elevate, and use the david wrap to help alleviate pain symptoms. Take ibuprofen as directed for pain relief. Refrain from strenuous physical activity until pain has resolved. Follow up with the sports medicine referral listed below if symptoms perist. - Billing Disposition and Condition Condition: STABLE Disposition: Home
== END 2019-06-20 22:30 | disposition home or self-care (01) ==
LOC: UCEAST 21:17
DX: M25.569 Pain in unspecified knee (principal); F17.210 Nicotine dependence, cigarettes, uncomplicated; Z88.6 Allergy status to analgesic agent
CPT/HCPCS: 99213; G0463

== ENCOUNTER 2019-07-08 19:10 | Emergency (ER) | payer OTHER ==
--- OUTSIDE RECORDS SUMMARY | 2019-07-08 19:16 | XMS REPORT | Continuity of Care Document ---
:1980 External Reference #:[id number] Author Name Chris Coughlin M.D. (transmitted by agent of provider Annie Pedraza ) Address [address], [place] [address] Care Team Providers Name Role Phone Chris Coughlin III, MD - Internal Care Team Information [facility] - Care Team Information [facility] [phone] Remarketing Manager Cain Magallon MD - Obstetrics & Care Team Information [facility] Gynecology Problems Description No Information Available Social History Type Date Description Comments Sex Unknown ETOH Use Occasionally consumes alcohol Recreational Drug Use Denies Drug Use Tobacco Use Start: Unknown Light tobacco smoker (10 or fewer cigarettes/day) Smoking Status Reviewed: 06/24/19 Light tobacco smoker (10 or fewer cigarettes/day) Exercise Type/Frequency Exercises regularly Allergies, Adverse Reactions, Alerts Active Allergies Reaction Severity Comments Date Aspirin throat swells 12/17/2015 Medications Description No Active Medications Immunizations CPT Code Status Date Vaccine Lot # [id number] Given 12/17/2015 Meningitis MCV4 MenACWY Meningococcal Conjugate [id number] Vaccine [id number] Given 12/17/2015 Tdap - Tetanus/Diptheria/Acellular Pertussis [id number] Vital Signs Date Vital Result Comment 06/24/2019 2:24pm Height 67 inches 5'7" Weight 257.00 lb Heart Rate 59 /min BP Systolic Sitting 116 mmHg BP Diastolic Sitting 75 mmHg BMI (Body Mass Index) 40.2 kg/m2 03/06/2019 10:18am Height 67 inches 5'7" Weight 197.00 lb Heart Rate 70 /min BP Systolic 124 mmHg BP Diastolic 80 mmHg Pain Level 6 BMI (Body Mass Index) 30.9 kg/m2 Results Description No Information Available Procedures Description No Information Available Medical Devices Description No Information Available Encounters Type Date Location Provider Dx Diagnosis Office Visit 03/06/2019 [facility] Katia Pike, M25.531 Pain in right 9:00a at [place] RPA-C wrist Assessments Date Code Description Provider 06/24/2019 Z00.00 Encounter for general adult medical Chris Coughlin M.D. examination without abnormal findings 06/24/2019 Z13.220 Encounter for screening for lipoid Chris Coughlin M.D. disorders 06/24/2019 Z13.1 Encounter for screening for diabetes Chris Coughlin M.D. mellitus 06/24/2019 R63.5 Abnormal weight gain Chris Coughlin M.D. 06/24/2019 Z01.419 Encounter for gynecological examination Chris Coughlin M.D. (general) (routine) without abnormal findings 03/06/2019 M25.531 Pain in right wrist Katia Pike [facility]- Plan of Treatment 06/24/2019 - Chris Coughlin M.D.Z00.00 Encounter for general adult medical examination without abnormal findingsComments:Tetanus current; yearly flu shots advised. (+) dental, occ eye exams. 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.Z13.220 Encounter for screening for lipoid thbeuefdhY80.1 Encounter for screening for diabetes zzifdxziD04.5 Abnormal weight gainReferral:[facility] SalyfxmnylzqU93.419 Encounter for gynecological examination (general) (routine) without abnormal findingsReferral:Cain Magallon MD, production leader/Phys/Osteo Functional Status Description No Information Available Mental Status Description No Information Available Referrals Refer to Dr Reason for Referral Status Appt Date [facility] Weight loss diet education Created [address] [place] [address] [phone] Cain Magallon MD Routine TRUCK STRIKER exam Created [address], [place] [address] [phone]
[2019-07-08 19:40] VITALS: BP 114/68
--- NOTE | 2019-07-08 20:19 | UC ---
Skin Complaint HPI - HPI Summary HPI Summary: 38yo female presenting with right breast pain and tenderness 2 days. Patient states the pain radiates from her nipple out towards her underarm. Denies any drainage or bleeding from the area. Denies any drainage from the nipple. Unsure of any redness or discoloration. Denies fever and chills. Denies nausea and vomiting. Not . Denies taking anything for pain relief. - History of Current Complaint Chief Complaint: UCGeneralIllness Time Seen by Provider: 07/08/19 19:51 Stated Complaint: BREAST PAIN Hx Obtained From: Patient Hx Last Menstrual Period: 06/30/19 Pain Intensity: 9 - Allergy/Home Medications Allergies/Adverse Reactions: Allergies Allergy/AdvReac Type Severity Reaction Status Date / Time aspirin Allergy Hives/Diff. Verified 07/08/19 19:40 Breathing/I tching Home Medications: Home Medications Sulfamethox/Trimethoprim DS* [Bactrim DS 800/160 TAB*] 1 tab PO BID #13 tab 02/16 [Rx] PMH/Surg Hx/FS Hx/Imm Hx Previously Healthy: Yes - Surgical History Surgical History: Yes Surgery Procedure, Year, and Place: [facility] [place] [facility] [place]- [place] [facility] [place]IA [place]/28/17 - Family History Known Family History: Positive: Hypertension - mom, Other - mother: pacemaker Negative: Respiratory Disease, Blood Disorder - Social History Alcohol Use: None Substance Use Type: None Smoking Status (MU): Current Every Day Smoker Type: Cigarettes Amount Used/How Often: 1/3 PPD Length of Time of Smoking/Using Tobacco: 19 YRS Have You Smoked in the Last Year: Yes Household Exposure Type: Cigarettes Review of Systems All Other Systems Reviewed And Are Negative: Yes Constitutional: Positive: Negative Skin: Positive: Other - pain of right breast around nipple Respiratory: Positive: Negative Cardiovascular: Positive: Negative Gastrointestinal: Positive: Negative Musculoskeletal: Positive: Negative Neurological/Mental Status: Positive: Negative Physical Exam - Summary Physical Exam Summary: Vital Signs Reviewed: Yes A+Ox3, no distress, well-appearing Eyes: Conjunctiva Clear ENT: Hearing grossly normal Neck: Positive: Supple Respiratory: Positive: No respiratory distress, No accessory muscle use + CTA throughout no w/r Cardiovascular: RRR nl s1, s2 no m/r Musculoskeletal Exam: DIMAS x 4 without difficulty Neurological: Positive: Alert Psychological: Positive: age appropriate behavior Skin: Positive: ~4cm area of erythema and warmth not well-demarcated noted in RUQ of right breast not extending to areola, central induration noted, red streaking toward axilla, TTP, no fluctuance or drainage, no peau d'orange appearing, no discharge or blood expressed from nipple Vital Signs: Initial Vital Signs Temp 99.6 F 07/08/19 19:34 Pulse 88 07/08/19 19:34 Resp 16 07/08/19 19:34 BP 114/68 07/08/19 19:34 Pulse Ox 100 07/08/19 19:34 Diagnostics - Radiology US right breast Radiology Interpretation Completed By: Radiologist Summary of Radiographic Findings: IMPRESSION: No evidence of abscess or other dominant mass. Correlate clinically for possible mastitis Course/Dx - Course Course Of Treatment: Ultrasound did not reveal abscess. US suggestive of mastitis and instructed to correlate clinically. I treated with 1gm rocephin here given red streaking. I provided patient with first dose of Bactrim here in provided with prescription for the rest to pharmacy picking tech tomorrow. Instructed to apply warm compresses and take OTC analgesics for pain relief. I educated patient on signs and symptoms of worsening infection, including increasing redness and warmth after 24-48 hours of taking the antibiotic. Instructed to go to ED if any red flags occur. Patient voiced understanding and agreed with the treatment plan. - Diagnoses Provider Diagnosis: Cellulitis of right breast Discharge ED - Sign-Out/Discharge Documenting (check all that apply): Patient Departure All imaging exams completed and their final reports reviewed: No Studies - Discharge Plan Condition: Stable Disposition: HOME Prescriptions: Sulfamethox/Trimethoprim DS* [Bactrim DS 800/160 TAB*] 1 tab PO BID #13 tab Patient Education Materials: Cellulitis (ED) Referrals: Chris Coughlin MD [Primary Care Provider] - If Needed Additional Instructions: Take bactrim as prescribed for the treatment of your skin infection. You received the first dose tonight and the remainder of your prescription has been sent to your pharmacy to be picked up. Apply warm compresses to the area for 15-20 minutes 2-3 times daily. You may also take ibuprofen and/or tylenol for pain relief. Go to the emergency room if you experience new or worsening symptoms, such as increasing redness and warmth to the area after taking the antibiotic for 48 hours, fever, or nausea and vomiting. - Billing Disposition and Condition Condition: STABLE Disposition: Home
[2019-07-08] MEDS ORDERED: cefTRIAXone VIAL(*) 250 MG VIAL IM ONE (20:30)
[2019-07-08] MEDS ORDERED: Lidocaine 1% MPF ** 5 ML VIAL IM ONE (20:30)
[2019-07-08] MEDS ORDERED: Sulfamethox/Trimethoprim DS 800/160* TAB PO ONE (20:31)
== END 2019-07-08 21:00 | disposition home or self-care (01) ==
LOC: UCEAST 19:10
DX: N61.0 Mastitis without abscess (principal); F17.210 Nicotine dependence, cigarettes, uncomplicated; Z88.8 Allergy status to other drugs, medicaments and biological substances
CPT/HCPCS: 96372; 99212; A9270-GY; G0463; J0696

== ENCOUNTER 2019-08-01 14:32 | Emergency (ER) | payer OTHER ==
--- OUTSIDE RECORDS SUMMARY | 2019-08-01 14:42 | XMS REPORT | Continuity of Care Document ---
:1980 External Reference #:[id number] Author Name Chris Coughlin M.D. 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 Smoking Status Reviewed: 06/24/19 Light tobacco smoker One half pack (10 or fewer daily; began age cigarettes/day) 17. Exercise Type/Frequency Exercises sporadically Allergies, Adverse Reactions, Alerts Active Allergies Reaction Severity Comments Date Aspirin throat swells 12/17/2015 Medications Description No Active Medications Immunizations CPT Code Status Date Vaccine Lot # [id number] Given 12/17/2015 Meningitis MCV4 MenACWY Meningococcal Conjugate [id number] Vaccine 51297 Given 12/17/2015 Tdap - Tetanus/Diptheria/Acellular Pertussis k2d2t [...] Date Location Provider Dx Diagnosis Office Visit 06/24/2019 [employer] [facility] [employer] Advisor Internal Chris Coughlin, Z00.00 Encntr for general 2:20p Medicine - [facility] Ivan adult medical exam w/o abnormal findings Z13.220 Encounter for screening for lipoid disorders Z13.1 Encounter for screening for diabetes mellitus R63.5 Abnormal weight gain Office Visit 03/06/2019 9:00a [facility] Katia Pike, M25.531 Pain in at [place] RPA-C right wrist Assessments Date Code Description Provider 06/24/2019 Z00.00 Encounter for general adult medical Chris Coughlin M.D. examination without abnormal findings 06/24/2019 Z13.220 Encounter for screening for lipoid Chris Coughlin M.D. disorders 06/24/2019 Z13.1 Encounter for screening for diabetes Chris Coughlin M.D. mellitus 06/24/2019 R63.5 Abnormal weight gain Chris Coughlin M.D. 03/06/2019 M25.531 Pain in right wrist Katia Pike RPA-C Plan of Treatment 06/24/2019 - Chris Coughlin M.D.Z00.00 Encounter for general adult medical examination without abnormal findingsComments:Tetanus current; yearly flu shots advised. (+) dental, occ eye exams. Pt due for a SURVEILLANCE OFFICER recheck, but no ongoing problems.Z13.220 Encounter for screening for lipoid eleofwnjmX05.1 Encounter for screening for diabetes mellitusComments:Lipids okay in 2019 but recheck advised with her weight gain since then.R63.5 Abnormal weight gainComments: Weight up 60 pounds from 2019. Check labs including thyroid function and carpet binder consult discussed. [facility] referral entered for diet educationReferral:[facility], Pre Sales Network Engineer Functional Status Description No Information Available Mental Status Description No Information Available Referrals Refer to Dr Reason for Referral Status Appt Date [facility] Weight loss diet education Created [address] [place] [address] [phone] Cain Magallon MD Routine SURVEILLANCE OFFICER exam Sent [address] [place] [address] [place] [address] [phone]
--- NOTE | 2019-08-01 14:44 | UC ---
Eye Complaint HPI - HPI Summary HPI Summary: Pleasant 38 yo female c/o itchy R eye since yesterday. No fever / chills No vis / aud changes No cough / sob / cp No GI issues No rash No sinus pain drainage / ear pain Has been seen for pink eye several times (reports this is her 5th episode in 10 months) lately. Has been doing a lot of computer work. - History of Current Complaint Stated Complaint: EYE ISSUE Time Seen by Provider: 08/01/19 14:44 Hx Obtained From: Patient Hx Last Menstrual Period: 06/30/19 ?: No - Allergies/Home Medications Allergies/Adverse Reactions: Allergies Allergy/AdvReac Type Severity Reaction Status Date / Time aspirin Allergy Hives/Diff. Verified 07/08/19 19:40 Breathing/I tching Home Medications: Home Medications Sulfamethox/Trimethoprim DS* [Bactrim DS 800/160 TAB*] 1 tab PO BID #13 tab 02/16 [Rx] Azithromycin TAB* [Zithromax TAB (Z-LACHELLE) 250 mg #6 tabs] 250 mg PO DAILY #6 tab 08/01/19 [Rx] Neomycin/Polym/Gramic Opth.so* [Neosporin OPTH.ALYSSA*] 2 drop RIGHT EYE QID 5 Days #1 btl 08/01/19 [Rx] Olopatadine 0.1% OPHTH (NF) [Patanol 0.1% OPHTH (NF)] 1 drop BOTH EYES BID 30 Days #1 btl 08/01/19 [Rx] PMH/Surg Hx/FS Hx/Imm Hx Previously Healthy: Yes - Surgical History Surgical History: Yes Surgery Procedure, Year, and Place: [facility] [place]PAIR LEFT FOREARM [place] [facility] [place]- [place], [place] [facility] [place] . HERNIA REPAIR 01/28/17 - Family History Known Family History: Positive: Hypertension - mom, Other - mother: pacemaker Negative: Respiratory Disease, Blood Disorder - Social History Alcohol Use: None Substance Use Type: None Smoking Status (MU): Current Every Day Smoker Type: Cigarettes Amount Used/How Often: 1/3 PPD Length of Time of Smoking/Using Tobacco: 19 YRS Have You Smoked in the Last Year: Yes Household Exposure Type: Cigarettes Review of Systems All Other Systems Reviewed And Are Negative: Yes Constitutional: Positive: Negative Skin: Positive: Negative Eyes: Positive: Other - see hpi ENT: Positive: Other - see hpi Respiratory: Positive: Negative Cardiovascular: Positive: Negative Gastrointestinal: Positive: Negative Genitourinary: Positive: Negative Motor: Positive: Negative Neurovascular: Positive: Negative Musculoskeletal: Positive: Negative Neurological/Mental Status: Positive: Negative Psychological: Positive: Negative Is Patient Immunocompromised?: No Physical Exam Triage Information Reviewed: Yes Appearance: Well-Appearing, Well-Nourished Vital Signs Reviewed: Yes Eye Exam: Other - R eye + conjunctiva injected. + mild lid swelling. Drainage white mild. No cellulitis. ENT: Positive: Pharynx normal, TM dull. Negative: Nasal drainage Neck exam: Normal Neck: Positive: Supple, Nontender, No Lymphadenopathy Respiratory Exam: Normal - RR normal, no tachypnea, no dyspnea Cardiovascular Exam: Normal - HR regular, nondiaphoretic Abdominal Exam: Normal - benign, sitting up, no c/o's Abdomen Description: Positive: Nontender Musculoskeletal Exam: Normal Neurological Exam: Normal - grossly nonfocal Psychological Exam: Normal Psychological: Positive: Normal Response To Family Skin Exam: Normal - no visible or reported rash Eye Complaint Course/Dx - Course Course Of Treatment: Repeated conjunctivitis. Swab cx R inner lower lid sent. Will start azithromycin and triple abx eye gtt. Suspect allergic component, although possible dry eye component. Rx patanol e-scribed, d/w pt (if too expensive, then will check with eye doctor. Also not to start until conjunctivitis sx resolved). Questions as posed answered to the best of my ability. - Differential Dx/Diagnosis Provider Diagnosis: Conjunctivitis Discharge ED - Sign-Out/Discharge Documenting (check all that apply): Patient Departure All imaging exams completed and their final reports reviewed: No Studies - Discharge Plan Condition: Stable Disposition: HOME Prescriptions: Azithromycin TAB* [Zithromax TAB (Z-LACHELLE) 250 mg #6 tabs] 250 mg PO DAILY #6 tab Neomycin/Polym/Gramic Opth.so* [Neosporin OPTH.ALYSSA*] 2 drop RIGHT EYE QID 5 Days #1 btl Olopatadine 0.1% OPHTH (NF) [Patanol 0.1% OPHTH (NF)] 1 drop BOTH EYES BID 30 Days #1 btl Patient Education Materials: Conjunctivitis (ED) Referrals: Chris Coughlin MD [Primary Care Provider] - Additional Instructions: Follow up with an eye doctor, if symptoms worse or no better. Otherwise, follow up with eye doctor for routine, regarding frequent eye infection. Please wash hands frequently, and replace all face / eye makeup. Avoid contact lens use, if applicable. Patanol, to start when "pink eye" (conjunctiviitis) symptoms have resolved. - Billing Disposition and Condition Condition: STABLE Disposition: Home
[2019-08-01 14:49] VITALS: BP 169/92
== END 2019-08-01 15:16 | disposition home or self-care (01) ==
LOC: UCEAST 14:32
DX: H10.31 Unspecified acute conjunctivitis, right eye (principal); Z88.6 Allergy status to analgesic agent; F17.210 Nicotine dependence, cigarettes, uncomplicated
CPT/HCPCS: 87070; 87205; 99212; G0463